=== PATIENT | female | born 1940 | race Hispanic/Latino ===

== ENCOUNTER 2017-04-04 15:19 | Emergency (ER) | payer MEDICARE ==
[~2017-04-04] VITALS: Ht 149.9 cm; Wt 59.1 kg
[~2017-04-04 15:19] MED LIST: AMLO5TAB2 PO; CLON0.1T PO; HYDR25TA4 PO; LIP40 PO; METO50TA3 PO; OMEG1CAP56 PO; SPIR25TA3 PO
[2017-04-04 15:26] VITALS: BP 140/74; PULSE 68; RESP 20; O2SAT 98
--- NOTE | 2017-04-04 15:39 | ED.REPORT ---
HPI-General Illness Date of Service Apr 04, 2017 ED Provider: Flavio Collins MD The patient is a 77 yo female with history of CAD s/p 3 stents placement (2008) , HTN, and hyperlipidemia who presents to the ER for bilateral leg pain and weakness since 0600 this morning. Patient reports walking to the bathroom when she had a sudden onset of lower extremity weakness that caused her to lose her balance and almost fell to the floor, but she was able to catch herself last night. She has had chronic bilateral leg pain and cramps for a year, but has never felt this weak and heavy. The leg pain starts in her hips and radiates down to her feet. She also admits to bilateral feet numbness with ambulation, but no symptoms at rest. She denies all other symptoms, including any headache, dizziness, one-sided weakness, slurred speech, back pain, bowel/urinary dysfunction, chest pain, SOB, nausea, or vomiting. She saw her PCP last month and was told that she has a new heart murmur and might have a blockage in her heart. She had an Echo done a week ago and is very anxious about the result. Although the patient has been on the Atorvastatin 40mg for a few years, she only develops the leg cramps a year ago. Her PCP also suspected that her leg cramps could be from the side effects of Atorvastatin so he decreased the dose to 20mg 3 weeks ago. Nursing Notes Stated Complaint: BOTH LEGS WEAKNESS,HEAVY Chief Complaint: General Complaint Nursing Notes Reviewed: Yes Allergies: Coded Allergies: Penicillins (Verified Allergy, Unknown, 03/24/15) codeine (Verified Allergy, Unknown, 03/24/15) Scheduled Amlodipine (Amlodipine) 5 Mg Tablet 5 MG PO DAILY Atorvastatin (Lipitor) 40 Mg Tablet 40 MG PO DAILY Clonidine (Clonidine) 0.1 Mg Tablet 0.1 MG PO HS Hydrochlorothiazide (Hydrochlorothiazide) 25 Mg Tablet 25 MG PO DAILY Metoprolol Tartrate (Metoprolol Tartrate) 50 Mg Tablet 50 MG PO BID [place]-3 Fatty Acids/Fish Oil ([place] 3 1,000 mg Softgel) 1 Each Capsule 1 EACH PO BID Spironolactone (Spironolactone) 25 Mg Tablet 25 MG PO DAILY General Time Seen by MD: 15:31 Chief Complaint Weakness Hx Obtained From: Patient, Daughter Arrived By: Walk-in Sudden in Onset?: Yes Onset Occurred: Yesterday Symptom Duration: Since onset Location: : Leg left: Leg right Quality: Cramping Radiation: : Leg left: Leg right Severity: Current: Moderate Severity: Maximum: Severe Associated with: Reports: Numb extremities, Off balance, Pain on walking, Weak extremity, Weakness, Denies: Abdominal pain, Chest pain, Cough, Diaphoresis, Dizziness, Headache, Inability to bear weight, Nausea, Speech abnormal, Vision change, Vomiting Pertinent Negative: Pt denies other symptoms Pertinent Negative: Exacerbated by nothing, Relieved by nothing Recent Healthcare: No recent hospitalization, Recent doctor visit Similar Sx Previous: No Past Medical History Past Medical History [place] Reports: Hyperlipidemia, Hypertension Past Surgical History Cardiac stents placed Smoking History Former Smoker Social History Alcohol Use: Denies alcohol use Other Social History: Good social support, , Local resident Ambulatory Status Independent Review of Systems Full Review of Systems Constitutional: Reports: Fatigue, Weakness - generalized, Denies: Chills, Fever Eyes: Denies: Photophobia, Visual loss bilateral Ears / Nose / Throat: Denies: Voice change Respiratory: Denies: Non-productive cough, Pleuritic pain, Shortness of breath , Wheezing Cardiovascular: Denies: Chest pain, Dyspnea on exertion, Edema, Orthopnea, Palpitations, Syncope GI: Denies: Abdominal pain, Nausea, Vomiting Female: Denies: Dysuria Musculoskeletal: Reports: Extremity pain, Denies: Back pain, Extremity swelling, Joint pain, Joint swelling, Lumbar pain, Myalgia Hematologic: Denies Adenopathy Skin: Denies Bruising, Denies Diaphoresis, Denies Rash Neurologic: Reports: Numbness, Problem walking, Weakness, Denies: Abnormal movement, Bladder dysfunction, Bowel dysfunction, Confusion , Dizziness, Headache, Lightheaded, Shaking, Slurred speech, Spinning sensation , Vision change Psychiatric: Reports: Anxiety, Depression, Stress, Denies: Change mental status Complete sys rev & neg: except as marked. Physical Exam Vital Signs Vital Signs Date Time Temp Pulse Resp B/P Pulse Ox O2 Delivery O2 Flow Rate FiO2 04/04/17 17:56 36.8 56 20 151/46 98 Room Air 04/04/17 15:51 58 20 157/60 97 Room Air 04/04/17 15:26 36.7 68 20 140/74 98 Room Air Initial VS: Reviewed, Vital signs normal General/Constitutional: Well-developed, Well-nourished Head / Eyes: Atraumatic, Normocephalic, PERRL ENT: Mucous membranes moist, Conjunctiva normal, No scleral icterus Neck: Supple, Non-tender, Full range of motion Respiratory: Breath sounds normal, Clear to auscultation, No respiratory distress Cardiovascular: Regular rate & rhythm, Intact distal pulses Abdomen / GI: Soft, Non-tender, No guarding, No rebound, No distention Back: No CVA tenderness Lymphatic: No lymphadenopathy Extremities: Vascular intact, Neuro intact, No swelling, No tenderness Skin: Warm, Dry, No cyanosis Neurologic: Alert, Oriented, Nonfocal Psychiatric: Mood/affect normal, Behavior normal, Normal thought content Cardiovascular: Heart rate NL, Regular rhythm, Peripheral circulation NL, Pulses = bilaterally Heart Sounds / Murmur: Positive: Systolic murmur present.. (III/) Lower Extremity / Pelvis / MS: Atraumatic, Inspection NL, No swelling, No deformity, Neurologic intact, Vascular intact, No edema Bilateral leg pain induced by straight leg raising. No joint effusion noted in the knees. Mild tenderness to palpation in the bilateral thighs at rest. Motor strength symmetrical and normal bilaterally. Sensation intact throughout. Neurologic: Oriented X3, Speech NL, No motor deficits, No sensory deficits, CN II - XII intact, Reflexes equal bilat, Cerebellar NL, Memory NL Limp gait on the right. Interpretation & Diagnostics Lab Results Interpretation Result Diagram: 04/04/17 1640 04/04/17 1640 Test 04/04/17 16:40 White Blood Count 7.7th/mm3 (3.8-10.1) Red Blood Count 4.06mil/mm3 (3.90-5.20) Hemoglobin 12.1g/dL (12.0-15.6) Hematocrit 37.0% (35.0-46.0) Mean Corpuscular Volume 91.1fL (81-100) Mean Corpuscular Hemoglobin 29.8pg (27.0-35.0) Mean Corpuscular Hemoglobin Concent 32.7% (32.0-37.0) Red Cell Distribution Width 13.8% (12.3-15.4) Platelet Count 215bil/L (150-400) Neutrophils (%) (Auto) 59.8% (40-74) Lymphocytes (%) (Auto) 26.0% (14-46) Monocytes (%) (Auto) 11.6% (4-12) Eosinophils (%) (Auto) 2.2% (0-5) Basophils (%) (Auto) 0.3% (0-3) Sodium Level 138mEq/L (134-144) Potassium Level 4.1mEq/L (3.5-5.2) Chloride Level 102mEq/L (97-108) Carbon Dioxide Level 23mmol/L (18-29) Blood Urea Nitrogen 26mg/dL (8-27) Creatinine 0.98mg/dL (0.57-1.00) Estimat Glomerular Filtration Rate 79mL/min (>59) Glucose Level 91mg/dL (60-99) Calcium Level 10.1mg/dL (8.5-10.1) Total Bilirubin 0.4mg/dL (0.0-1.2) Aspartate Amino Transf (AST/SGOT) 23U/L (0-50) Alanine Aminotransferase (ALT/SGPT) 17U/L (0-32) Alkaline Phosphatase 82U/L (25-165) Total Protein 7.8g/dL (6.4-8.4) Albumin 4.4g/dL (3.4-5.0) Hold Joy Top Tube Received (Received) Lab values outside NL range: no clinical significance. Re-Eval/Medical Decision Med Decision/Clinical Course 77 yo female with history of CAD s/p stents, HTN, and hyperlipidemia presents to the ER for bilateral lower extremity weakness and pain onset this morning. Patient has chronic leg cramps for a year, that is suspected to be due to Atorvastatin by her PCP, but no other causes have been identified. However, she reports symmetrical weakness and numbness that are new to her. She does not have any other symptoms and her neurological exam is benign. We did not find any signs or symptoms of neurological deficit, and thus no imaging is indicated. Her symptoms are likely musculoskeletal etiology. They could be the side effects of statin medication, sciatica, or unspecified neuropathy. None of these are life-threatening. Therefore, patient is recommended to follow up with her PCP and clam shucker. ER precautions for symptoms of ACS or stroke advised. Patient verbalized understanding and agreed with discharge plan. Of note, patient was greatly concerned of possible "heart blockage" and her Echo report, so I looked up [employer] and found out that Dr. Kang found her murmur to be new and was concerned of valvular disease, thus the Echo order. Her Echo, however, did not show significant valvular disease. There is elevated filling pressures, which is suggestive of possible dystolic CHF. These findings were discussed with the patient and I encouraged her to discuss it with her clam shucker. However, I reassured her that there is no blockage noted on the Echo as she has feared. Source of Hx: Old records, Family Counseled Regarding: Diagnosis, Lab results, Need for follow-up, When/why to return to ED Discharge & Departure Shift Change Sign-Out Response to Therapy: Unchanged Primary Impression: Bilateral leg weakness Additional Impression: Chronic pain of lower extremity, bilateral Disposition: Home Discharge Condition All VS Reviewed: Yes Condition: Stable Patient Instructions: Leg Pain (ED) Additional Instructions: Based on our exam, you do not have any neurological deficit. Your labs are all normal. It is likely that the leg weakness you experienced last night was from the leg pain. It is also possible that you have sciatica. We are not sure the exact cause of your leg pain, but this has been worked up by your PCP. Please follow up with Dr. Kang and your clam shucker to discuss about stopping the Atorvastatin. It is probable that your leg cramps is a side effect of the cholesterol medication. However, in light of your significant cardiovascular history, you need to talk to your doctor before you discontinue any of your medication. I reviewed the Echocardiogram report with you today, which did not show any significant issue. You might have a little filling defect in your heart (also known as diastolic heart failure) but there is no significant valvular disease. If you have any question about the Echocardiogram, you should talk to either your PCP or clam shucker. You can take Ibuprofen as needed for pain. Talk to your PCP about other possible medications. Return to the ER if you develop chest pain, shortness of breath, nausea, vomiting, headache, one-sided weakness, or slurred speech. Referrals: Bairon Kang MD (PCP) EDSupervising Provider for APC: Flavio Collins MD Attending Statement I saw this patient in conjunction with the above-named resident. I was present for all matos elements of history taking, examination and treatment. I agree with the workup, plan and disposition. Flavio Damian MD, MD Apr 04, 2017 15:39 Vanesa Hercules DO Apr 04, 2017 17:40
[2017-04-04 15:51] VITALS: BP 157/60; PULSE 58; RESP 20; O2SAT 97
[2017-04-04 17:06] LABS: BASOPHILS % (AUTO) 0.3 % (0-3); EOSINOPHILS % (AUTO) 2.2 % (0-5); MONOCYTES % (AUTO) 11.6 % (4-12); Mean Corpuscular Hemoglobin 29.8 pg (27.0-35.0); Mean Corpuscular Volume 91.1 fL (81-100); NEUTROPHILS % (AUTO) 59.8 % (40-74); Platelet Count 215 bil/L (150-400)
[2017-04-04 17:56] VITALS: BP 151/46; PULSE 56; RESP 20; O2SAT 98
== END 2017-04-04 17:58 | disposition home or self-care (01) ==
LOC: SED 15:19
DX: R53.1 Weakness (principal); M79.604 Pain in right leg; M79.605 Pain in left leg; G89.29 Other chronic pain; R20.2 Paresthesia of skin; I25.10 Atherosclerotic heart disease of native coronary artery without angina pectoris; I10 Essential (primary) hypertension; E78.5 Hyperlipidemia, unspecified; I25.2 Old myocardial infarction; Z95.818 Presence of other cardiac implants and grafts; Z87.891 Personal history of nicotine dependence; Z88.0 Allergy status to penicillin; Z88.5 Allergy status to narcotic agent